=== PATIENT | female | born 1960 | race Caucasian/White ===

== ENCOUNTER 2021-11-25 20:54 | Emergency (ER) | payer BC ==
[~2021-11-25] VITALS: Ht 162.6 cm; Wt 93.0 kg
[2021-11-25 21:00] VITALS: BP 193/109
--- NOTE | 2021-11-25 21:00 | NUR ---
ARRIVAL ARRIVED VIA W/C. ALERT AND ORIENTED X3. UPPER ABDOMINAL PAIN RADIATING TO BACK FOR THE LAST 4HRS. C/O PAIN 10/10 ON NUMERICAL SCALE. REPORTED TO / JAMES. EKG IN PROCESS.
--- NOTE | 2021-11-25 21:15 | PCM.EKG ---
[facility] Test Date: 2021-11-25 Test Time: 21:08:32 Pat Name: NAM COX Department: [id number] Room: Gender: F Cuff Slitter: BEATRICE : 1960 Requested By: SCOTT RAMIREZ Order Number: [id number] Reading MD: Scott Ramirez Measurements Intervals [place] Rate: 84 P: 36 TN: 167 QRS: -18 QRSD: 98 T: 43 QT: 405 QTc: 479 Interpretive Statements Sinus rhythm Atrial premature complex Left atrial enlargement Borderline left axis deviation RSR' in V1 or V2, probably normal variant No previous ECG available for comparison Electronically Signed On 11-26-2021 4:27:07 CDT by Scott Ramirez Please click the below link to view image of tracing.
[2021-11-25] MEDS ORDERED: NITROSTAT SL STA ×2 (21:18→23:26)
[2021-11-25 21:35] LABS: BASOPHIL % 0.1 % (0.0-0.2); LYMPHOCYTES # 0.82 10^3/uL1 (1.0-4.8); LYMPHOCYTES % 3.7 % (24.0-44.0); MONOCYTES # 1.2 10^3/uL (0.3-0.8); MONOCYTES % 5.3 % (5.0-12.0); NEUTROPHIL # 20.4 10^3/uL (1.8-7.7); NEUTROPHILS % 90.9 % (41.0-85.0); PLATELET COUNT 283 10^3/uL (150-400)
[2021-11-25] MEDS ORDERED: MORPHINE SULFATE IV STA (21:55)
[2021-11-25] MEDS ORDERED: ZOFRAN IV STA ×2 (21:55→23:33)
[2021-11-25 21:59] LABS: LYMPHOCYTE 2 % (25-36); MONOCYTE 2 % (3-9); SEGMENTED NEUTROPHILS 96 % (31-76)
--- NOTE | 2021-11-25 22:03 | DIREP ---
PROCEDURE:CHEST 1 VIEW COMPARISON:None. INDICATIONS:chest pain FINDINGS: LUNGS/PLEURA:Increased reticular interstitial markings in the lungs. VASCULATURE:Normal. Unremarkable pulmonary vasculature. CARDIAC:Borderline cardiomegaly. MEDIASTINUM:Normal. No visible mass or adenopathy. BONES:Normal. No fracture or visible bony lesion. OTHER:Negative. CONCLUSION: 1. Increased reticular interstitial markings in the lungs may reflect scarring, interstitial edema, interstitial pneumonia or combination thereof. 2. No focal infiltrate. 3. Borderline cardiomegaly may be secondary to portable technique accentuation. Dictated by: Eduardo Groves M.D. on 11/25/2021 at 09:54 PM
[2021-11-25 22:15] LABS: CARBON DIOXIDE 22.7 mmol/L (20.0-32)
[2021-11-25] MEDS ORDERED: ZOFRAN ONE (22:19)
[2021-11-25] MEDS ORDERED: MORPHINE SULFATE ONE (22:20)
--- NOTE | 2021-11-25 23:16 | NUR ---
CRITICAL LAB D.DIMER 2.. NOTIFIED DR. RAMIREZ. NO NEW ORDERS AT THIS TIME.
[2021-11-25] MEDS ORDERED: DILAUDID IV STA (23:33)
[2021-11-25] MEDS ORDERED: DILAUDID ONE (23:57)
--- NOTE | 2021-11-26 00:27 | NUR ---
CHEYENNE RAMIREZ EXPLAINED RISK INVOLVED. PT STATED, "I BELIEVE THE LORD WILL PROTECT ME UNTIL I GET TO [place] WHERE I LIVE. I NEED TO GO WHERE I AM IN NETWORK SO I CAN AFFORD THE MEDICAL CARE." CHEYENNE PAPERWORK SIGNED BY PT. DISCHARGE WITH SPOUSE.
--- NOTE | 2021-11-26 00:28 | ER.PDOC ---
General Chief Complaint: Requesting Medical Care Stated Complaint: POSS HIGH BLOOD PRESSURE,CHEST PAIN Time seen by MD: 21:13 Source: patient Exam Limitations: no limitations History of Present Illness Initial Comments Pt presents c/o severe sharp chest pain that have progressively worsened since 01:00pm radiating to her mid back as well as elevated BP. Pt points at her epigastric region when she c/o chest pain. Denies any relief with ASA 161 mg taken at 03:00pm and at 06:00pm. Also admits to alcohol use. On arrival to the ER, she is in no acute distress, elevated BP noted. Severity/Quality: severe, sharp Radiation: back Activities at Onset: rest Modifying Factors: other (nothing helped) Nitro Today/Relief: No Nitro Taken Today Aspirin Today: 81 mg x 4 Associated Symptoms: abdominal pain (epigatsric pain) Allergies: Coded Allergies: butorphanol (Verified Allergy, Unknown, 11/26/21) ceftriaxone (Verified Allergy, Unknown, 11/26/21) Constitutional: denies chills, denies fever, denies malaise, denies weakness EENTM: denies eye pain Respiratory: denies cough, denies shortness of breath, denies SOB with exertion Cardiovascular: chest pain; denies lightheadedness, denies palpitations Gastrointestinal: abdominal pain; denies diarrhea, denies nausea, denies vomiting Genitourinary: denies dysuria Skin: denies change in color Psychiatric/Neurological: denies headache All Other Systems: Reviewed and Negative Physical Exam General Appearance: No Apparent Distress, WD/WN HEENT: PERRL/EOMI, Normal ENT Inspection Neck: Non-Tender, Full Range of Motion, Supple, Normal Inspection Respiratory: chest non-tender, lungs clear, normal breath sounds, no re spiratory distress, no accessory muscle use Cardiovascular: Normal Peripheral Pulses, Regular Rate, Rhythm, No Edema, No Gallop, No JVD, No Murmur Gastrointestinal: Normal Bowel Sounds, No Organomegaly, No Pulsatile Mass, Soft, Tenderness (epigastric region) Rectal: Normal Exam Extremities: Normal Range of Motion, Non-Tender, Normal Inspection, No Pedal Edema, No Calf Tenderness, Normal Capillary Refill Neurologic/Psychiatric: division leader II-XII NML as Tested, No Motor/Sensory Deficits, Alert, Normal Mood/Affect, Oriented x 3 Skin: Normal Color, Warm/Dry Results/Orders Results/Orders Orders - CRISTI RAMIREZ MD Cbc With Auto Diff (11/25/21 21:12) Comprehensive Metabolic Panel (11/25/21 21:12) Creatine Kinase (11/25/21 21:12) Creatine Kinase Mb (11/25/21 21:12) Probnp B-Type Leisure Studies Professor (11/25/21 21:12) PT (11/25/21 21:12) Partial Thromboplastin Time. (11/25/21 21:12) D-Dimer (11/25/21 21:12) Xr Chest 1v (11/25/21 21:12) Ekg-Routine (11/25/21 21:12) Troponin I High Sensitivity (11/25/21 21:12) Saline Lock (11/25/21 21:12) Nitroglycerin (Nitrostat) (11/25/21 21:18) Lipase (11/25/21 21:18) Alcohol(Ml) (11/25/21 21:18) Ondansetron Hcl/Pf (Zofran) (11/25/21 21:55) Morphine Sulfate (Morphine Sulfate) (11/25/21 21:55) Ondansetron Hcl/Pf (Zofran) (11/25/21 22:19) Morphine Sulfate (Morphine Sulfate) (11/25/21 22:20) Troponin I High Sensitivity (11/25/21 23:26) Nitroglycerin (Nitrostat) (11/25/21 23:26) Hydromorphone Hcl (Dilaudid) (11/25/21 23:33) Ondansetron Hcl/Pf (Zofran) (11/25/21 23:33) Ct Abd/Pel With Iv Contrast (11/25/21 23:44) Hydromorphone Hcl (Dilaudid) (11/25/21 23:57) Blood Culture (11/26/21 00:03) Lactic Acid(Ml) (11/26/21 00:03) 0.9 % Sodium Chloride (Ns 1000ml) (11/26/21 00:30) Administered Medications Medications (Trade) Dose Ordered Sig/Ananya Route PRN Reason Start Time Stop Time Status Last Admin Dose Admin Hydromorphone HCl (Dilaudid) 1 mg OT STAT IV 11/25/21 23:33 11/25/21 23:35 DC 11/26/21 00:01 1 MG Morphine Sulfate (Morphine Sulfate) 4 mg STAT STAT IV 11/25/21 21:55 11/25/21 21:57 DC 11/25/21 22:27 4 MG Nitroglycerin (Nitrostat) 0.4 mg STAT STAT SL 11/25/21 21:18 11/25/21 21:19 DC 11/25/21 22:28 0.4 MG Nitroglycerin (Nitrostat) 0.4 mg STAT STAT SL 11/25/21 23:26 11/25/21 23:28 DC 11/26/21 00:00 0.4 MG Ondansetron HCl (Zofran) 4 mg OT STAT IV 11/25/21 21:55 11/25/21 21:57 DC 11/25/21 22:24 4 MG Laboratory Tests Test 11/25/21 21:37 11/25/21 21:39 White Blood Count 22.4 10^3/uL (4.5-11.0) H Red Blood Count 5.20 10^6/uL (4.00-5.20) Hemoglobin 15.6 g/dL (12.0-15.0) H Hematocrit 45.6 % (36.0-46.0) Mean Corpuscular Volume 87.7 fL (78-100) Mean Corpuscular Hemoglobin 30.0 pg (26-34) Mean Corpuscular Hemoglobin Concent 34.2 g/dL (33-36.5) Red Cell Distribution Width 14.0 % (11.5-14.5) Platelet Count 283 10^3/uL (150-400) Mean Platelet Volume 9.7 fL (7.8-11.0) Neutrophils (%) (Auto) 90.9 % (41.0-85.0) *H Lymphocytes (%) (Auto) 3.7 % (24.0-44.0) *L Monocytes (%) (Auto) 5.3 % (5.0-12.0) Neutrophils # (Auto) 20.4 10^3/uL (1.8-7.7) H Lymphocytes # (Auto) 0.82 10^3/uL1 (1.0-4.8) L Monocytes # (Auto) 1.2 10^3/uL (0.3-0.8) H Absolute Immature Granulocyte (auto 0.07 10^3 u/L (0-2) Absolute Eosinophils (auto) 0.0 10^3/uL (0.0-0.2) Immature Granulocytes % 0.30 % (0.00-0.50) Eosinophils % 0.0 % (0.0-5.0) Basophils % 0.1 % (0.0-0.2) Basophils # 0.0 10^3/uL (0.0-0.1) Prothrombin Time 10.0 SEC (9.1-11.5) Prothrombin Time INR (Non-Therap) 1.0 Activated Partial Thromboplast Time 22.7 SEC (22.5-33.1) D-Dimer 2.22 mg/L (0.19-0.49) *H Sodium Level 131 mmol/L (132-145) L Potassium Level 3.6 mmol/L (3.6-5.2) Chloride Level 94.0 mmol/L (96-109) L Carbon Dioxide Level 22.7 mmol/L (20.0-32) Anion Gap 17.9 Blood Urea Nitrogen 8 mg/dL (7-18) Creatinine 0.60 mg/dL (0.59-1.40) Estimated GFR () 123.8 (>/=60) Est GFR (CKD-EPI)(Non-Afr Armenian) 102.3 (>/=60) BUN/Creatinine Ratio 13.0 Glucose Level 210 mg/dL (70-110) H Calcium Level 10.1 mg/dL (8.4-10.5) Total Bilirubin 0.9 mg/dL (0.2-1.0) Aspartate Amino Transferase (AST) 26 U/L (0-35) Alanine Aminotransferase (ALT) 26 U/L (12-78) Alkaline Phosphatase 107 U/L (50-136) Total Creatine Kinase 249 U/L (26-192) H Creatine Kinase MB 2.1 ng/mL (0.5-3.6) Troponin I High Sensitivity 6 ng/L (0-50) Pro-B-Type Natriuretic Peptide 72 pg/mL (0-125) Total Protein 7.7 g/dL (6.4-8.2) Albumin 4.3 g/dL (3.4-5.0) Globulin 3.4 Albumin/Globulin Ratio 1.264 Lipase 5299 U/L (114-286) H Serum Alcohol < 3 mg/dL (0-50) Segmented Neutrophils 96 % (31-76) H Lymphocytes 2 % (25-36) L Monocytes 2 % (3-9) L Platelet Estimate ADEQUATE Platelet Morphology NORMAL Progress Progress Pt who admits to improved pain after several analgesics was given and NTG. Pt with elevated WBCs, Lipase and CK level adamantly refused further testing and management, stating she does not want to be admitted to the Hospital nor tra nsferred out due to the possible financial burden and would like to go home to [place]. Stated she is just visiting her parents here. The potential risks of signing AMA as well as uncontrolled BP was discussed with pt , she and her spouse expressed understanding, and she signed AMA. EKG/XRAY/CT/US EKG Comments: No acute ischemic change noted. XRAY: chest (Increase interstial makings, no focal infilttrates noted. ) ER DEPART Departure Time of Disposition: 00:28 Disposition: 07 LEFT AGAINST MEDICAL ADVICE Impression: Primary Impression: Acute pancreatitis Additional Impressions: Chest pain Leukocytosis Hypertensive emergency Condition: Against Medical Advice Referrals: PCP,UNKNOWN (PCP) PRIMARY CARE PROVIDER Duration or Time Spent with Pa: 60 mins Problem Qualifiers CRISTI RAMIREZ MD Nov 26, 2021 00:28
[2021-11-26] MEDS ORDERED: NS 1000ML 1,000 ML IV ONE (00:30)
== END 2021-11-26 00:27 | disposition left against medical advice (07) ==
LOC: ER 20:54
DX: I16.1 Hypertensive emergency (principal); D72.829 Elevated white blood cell count, unspecified; K85.90 Acute pancreatitis without necrosis or infection, unspecified; R07.9 Chest pain, unspecified; Z88.1 Allergy status to other antibiotic agents
CPT/HCPCS: 36415; 71045; 80053; 82077; 82550; 82553; 83690; 83880; 84484; 85025; 85379; 85610; 85730; 93005; 96374; 96375 ×2; 99284; J1170; J2405; 29125